=== PATIENT | female | born 1970 | race Caucasian/White ===

== ENCOUNTER 2016-10-24 06:31 | Day surgery (SDC) | payer OTHER ==
[~2016-10-24 06:31] MED LIST: FAMOTIDINE IN SALINE, ISO-OSM 20 MG/50 ML PIGGYBACK IV SCH; LACTATED RINGERS 1,000 ML IV SCH; LIDOCAINE HCL 1% 20 ML VIAL SUBCUT ONE; MIDAZOLAM HCL 2 MG/2 ML SYR IV ONE; ceFAZolin 1 GM in NORMAL SALINE MINI-BAG+ 100 ML IV ONE
[2016-10-24] MEDS ORDERED: ONDANSETRON HCL 4 MG/2 ML VIAL ONE (07:03)
[2016-10-24] MEDS ORDERED: DEXAMETHASONE 4 MG/ML VIAL ONE (07:04)
[2016-10-24] MEDS ORDERED: FENTANYL 100 MCG/2 ML VIAL ONE (07:04)
[2016-10-24] MEDS ORDERED: FAMOTIDINE IN SALINE, ISO-OSM 50 ML IV ONE (07:04)
[2016-10-24] MEDS ORDERED: SUCCINYLCHOLINE CHLORIDE 200 MG/10 ML VIAL ONE (07:04)
[2016-10-24] MEDS ORDERED: LIDOCAINE HCL 2% 20 ML VIAL ONE (07:04)
[2016-10-24] MEDS ORDERED: ceFAZolin 1 GM/10 ML VIAL ONE (07:05)
[2016-10-24] MEDS ORDERED: BUPIVACAINE/EPI 0.25% 1 VIAL VIAL ONE (07:08)
[2016-10-24] MEDS ORDERED: FENTANYL 100 MCG/2 ML VIAL IV PRN ×2 (08:15→08:50)
[2016-10-24] MEDS ORDERED: HYDROmorphone HCL 1 MG/ML SYR IV PRN ×2 (08:15→08:50)
[2016-10-24] MEDS ORDERED: LACTATED RINGERS 1,000 ML IV SCH (08:50)
[2016-10-24] MEDS ORDERED: METOCLOPRAMIDE HCL 10 MG/2 ML VIAL IV PRN (08:50)
[2016-10-24] MEDS ORDERED: KETOROLAC TROMETHAMINE 30 MG/ML VIAL IV ONE (08:50)
[2016-10-24] MEDS ORDERED: ONDANSETRON HCL 4 MG/2 ML VIAL IV PRN (08:50)
[2016-10-24 09:01] VITALS: RESP 12
[2016-10-24 09:06] VITALS: TEMP 97.2; O2SAT 91
[2016-10-24 09:15] VITALS: BP 115/79; PULSE 66
--- NOTE | 2016-10-24 15:33 | OPERATIVE REPORT ---
DATE OF SURGERY: 10/24/16 SURGEON: David Hair MD PREOPERATIVE DIAGNOSIS: Right medial meniscus tear. POSTOPERATIVE DIAGNOSIS: Right medial meniscus tear with grade 2 chondromalacia of the patella. PROCEDURE PERFORMED: Right knee arthroscopy, partial medial menisectomy, and chondroplasty of the patella. INDICATIONS FOR PROCEDURE: The patient is a 46-year-old female who fell directly onto her right knee, after which she developed persistent knee pain and a sense of clicking and catching in her knee. A subsequent MRI revealed findings consistent with a tear in the posterior horn of her right medial meniscus. Due to her ongoing symptoms, she was taken to the operating room for right knee arthroscopy. DESCRIPTION OF PROCEDURE: After informed consent was obtained, the patient was taken to the operating room where she was placed in the supine position under general anesthesia. After adequate anesthesia was achieved, the right knee and lower extremity were prepped and draped in the usual sterile fashion, the limb was gently exsanguinated, and a tourniquet was inflated about the proximal thigh to 300 mmHg. A standard anterolateral arthroscopic incision was then established and the arthroscope was guided into the knee and directed into the suprapatellar pouch. The suprapatellar pouch was examined and noted to be free of any loose bodies or other pathology. The articular surface of the patella was then examined and noted to have diffuse grade 2 chondromalacia. The femoral trochlea was free of any appreciable chondromalacia. The arthroscope was then guided into the medial gutter which was noted to be free of any loose bodies or other pathology. The arthroscope was then guided into the anterior portion of the knee and directed medially at which time the anteromedial incision was established under direct visualization. A shaver was introduced into the knee, and a synovectomy was performed in the anterior aspect of the knee in order to allow better visualization. The anterior cruciate ligament was examined and tested with a probe and noted to be stable and attached. The arthroscope was then guided into the medial compartment at which time it was noted that there was an area of grade 3 chondromalacia on the medial portion of the weightbearing surface of the medial femoral condyle. The tibial plateau was free of any significant degenerative change. The medial meniscus was examined and noted to have a radial tear in the posterior horn adjacent to the root. This tear was examined with a probe and no detachment of the root was noted. Therefore the torn portion of the meniscus was resected and then it was shaved to a stable rim. The remainder of the medial compartment was free of any additional pathology. The arthroscope was then guided into the lateral compartment at which time the lateral meniscus was examined and noted to be free of any tears. Likewise the remainder of the lateral compartment was free of any additional pathology. The arthroscope was then guided into the lateral gutter which was also noted to be free of any loose bodies or other pathology. The arthroscope was then guided back into the patellofemoral joint at which time the radial frequency wand was used to perform a chondroplasty of the patella. Once that was completed, the arthroscope was then guided back into the anterior aspect of the knee, and hemostasis was then achieved using the radiofrequency wand. The excess fluid was drained from the knee, and the knee was infused with 20 mL of 0.25% Marcaine with epinephrine. The incisions were each closed with a single 4-0 nylon suture, and lightly compressive sterile dressing was applied. The patient tolerated the procedure well and was taken to the recovery room in stable condition. ESTIMATED BLOOD LOSS: Minimal. FLUIDS: Lactated ringers 700 mL. TOURNIQUET TIME: 24 minutes. MTDD
--- NOTE | 2016-10-28 14:33 | PREOPERATIVE H&P ---
History of Present Illness (David Hair MD; 10/14/2016 11:03 AM) The patient is a 46 year old female. The patient is here for a follow-up after undergoing an MRI of her right knee. She is here to review the results. Allergies (Romi Mead RN; 10/14/2016 10:49 AM) No Known Drug [id number]/2015 Codeine/Codeine Derivatives (Tylenol 3, Vicodin, Percocet, Hydrocodone...)2011 Nausea, Vomiting. after hip replacement Family History (Romi Mead RN; 10/14/2016 10:49 AM) Mother hysterectomy for bleeding at age 36 Negative Family History of: breast, uterine, ovarian or colorectal cancer No Significant Family Ocular History Social History (Romi Mead RN; 10/14/2016 10:49 AM) Alcohol use Drinks Rarely. Tobacco use Former smoker, Age quit smoking. 19 Medication History (Romi Maed RN; 10/14/2016 10:49 AM) Xanax XR (1MG Tablet ER 24HR, 1 Oral every night) Active. CeleXA (40MG Tablet, Oral daily) Active. Levothyroxine Sodium (25MCG Tablet, 1/2 tab Oral daily) Active. Mobic (1 tab Oral daily) Specific dose unknown - Active. Ultram (1 tab Oral at HS prn) Specific dose unknown - Discontinued. Medications Reconciled Vitals (Romi Mead RN; 10/14/2016 10:49 AM) 10/14/2016 10:46 AM Weight: 250.9 lb Height: 64in Body Surface Area: 2.15 m Body Mass Index: 43.07 kg/m LMP: (Hysterectomy) Temp.: 96.9F Pulse: 96 (Regular) Resp.: 16 (Unlabored) BP: 100/76 (Sitting, Left Arm, Standard) Physical Exam (David Hair MD; 10/14/2016 11:04 AM) Musculoskeletal Physical examination today is unchanged. X-ray evaluation: We reviewed her MRI, and she has a moderate effusion. Her lateral meniscus is intact. She has evidence of early medial compartment arthrosis in the knee. There is also signal change adjacent to the meniscal root of the medial meniscus suggestive of a tear in that area. Her collateral ligaments and cruciate ligaments are intact. She has evidence of grade 2 patellar chondromalacia. Assessment & Plan (David Hair MD; 10/14/2016 11:05 AM) Degenerative tear of posterior horn of medial meniscus, right (M23.321) Assessment: Right medial meniscus tear as noted above. Plan: We discussed treatment options, and the patient does wish to proceed with knee arthroscopy. We will therefore schedule her procedure, and then plan on performing her preoperative evaluation on the date of surgery. Signed by David Hair MD (10/14/2016 11:05 AM) [facility]
== END 2016-10-24 09:27 | disposition home or self-care (01) ==
LOC: SDS 06:31
PROVIDERS: ATTEND Orthopaedic Surgery
DX: M23.321 Other meniscus derangements, posterior horn of medial meniscus, right knee (principal); E03.9 Hypothyroidism, unspecified; F32.9 Major depressive disorder, single episode, unspecified; Z79.899 Other long term (current) drug therapy
CPT/HCPCS: J0690; J1885; J2405